=== PATIENT | female | born 1985 | race Caucasian/White ===

== ENCOUNTER 2020-09-10 11:51 | Observation (INO) | END 2020-09-10 14:30 | disposition home or self-care (01) | LOC: 1NENULAB | PROVIDERS: ADMIT Obstetrics & Gynecology; ATTEND Obstetrics & Gynecology ==

== ENCOUNTER 2020-09-19 03:48 | Inpatient (IN) ==
[2020-09-19] MEDS ORDERED: Metoclopramide 10 MG/2 ML VIAL IVP PRN (04:57)
[2020-09-19] MEDS ORDERED: Naloxone 0.4 MG/ML INJ IVP PRN (04:57)
[2020-09-19] MEDS ORDERED: *HR* Nalbuphine 10 MG/ML AMPUL IV PRN (04:57)
[2020-09-19] MEDS ORDERED: Famotidine 20 MG/2 ML VIAL IVP PRN (04:57)
[2020-09-19] MEDS ORDERED: Lidocaine 1% 20 ML MDV INFILT PRN (04:57)
[2020-09-19] MEDS ORDERED: Ringers Solution, Lactated 1,000 ML IVC SCH (05:00)
[2020-09-19] MEDS: miSOPROStoL 25 MCG TABLET PO PRN ×2 (05:22→09:22)
[2020-09-19 05:56] LABS: Basophils # 0.1 K/mcL (0.0-0.2); Basophils % 0.6 %; Eosinophils # 0.1 K/mcL (0.0-0.6); Eosinophils % 1.1 %; Hemoglobin 11.1 g/dL (11.5-15.4); Immature Granulocytes % 0.5 % (0-4); Immature Platelets 1.9 % (1.1-6.1); Lymphocytes % 24.5 %; Mean Corpuscular HGB Conc 33.6 g/dL (31.6-35.5); Mean Corpuscular Hemoglobin 33.7 pg (28.0-33.3); Mean Corpuscular Volume 100.3 fL (83.0-100.0); Monocytes # 0.9 K/mcL (0.0-1.3); Monocytes % 9.7 %; Neutrophils # 5.6 K/mcL (1.6-8.9); Platelet Count 239 K/mcL (140-400); Red Blood Count 3.29 M/mcL (3.82-4.97); Red Cell Distribution Width 12.3 % (11.5-14.5); Segmented Neutrophils % 63.6 %; White Blood Count 8.8 K/mcL (4.3-11.1)
[2020-09-19 06:13] LABS: Amphetamine Screen,Urine Negative ng/mL (Cutoff=1000); Barbiturate Screen,Urine Negative ng/mL (Cutoff=200); Benzodiazepines Screen,Urine Negative ng/mL (Cutoff=200); Cannabinoid Screen,Urine Positive ng/mL (Cutoff = 50); Cocaine Screen,Urine Negative ng/mL (Cutoff= 300); Opiate Screen,Urine Negative ng/mL (Cutoff=300); Phencyclidine Screen,Urine Negative ng/mL (Cutoff=25)
[2020-09-19 06:18] LABS: Lymphocytes # 2.2 K/mcL (0.6-4.6)
[2020-09-19 06:19] LABS: Platelet Estimate Normal (Normal)
[2020-09-19] MEDS ORDERED: EPHEDrine 50 MG/ML VIAL IVP PRN (12:16)
[2020-09-19] MEDS ORDERED: Epidural Premix (fent/bupiv) 110 ML EP SCH (12:30)
[2020-09-19] MEDS ORDERED: Oxytocin 20 units/ LR 1000 mL 20 UNIT/1,000 ML BAG IVC SCH ×2 (12:45→22:45)
[2020-09-19] MEDS ORDERED: Measles/Mumps/Rubella Vacc 0.5 ML VIAL SQ PRN (22:33)
[2020-09-19] MEDS ORDERED: Rho Immune Globulin 1,500 UNIT SYRINGE IM PRN (22:33)
[2020-09-19] MEDS ORDERED: Acetaminophen 325 MG TABLET PO PRN (22:33)
[2020-09-19] MEDS ORDERED: Ibuprofen 600 MG TABLET PO PRN (22:33)
[2020-09-20 05:03] LABS: Basophils % 0.2 %; Eosinophils % 0.1 %; Hematocrit 30.7 % (35.3-44.9); Hemoglobin 10.6 g/dL (11.5-15.4); Immature Granulocytes % 0.5 % (0-4); Lymphocytes # 1.5 K/mcL (0.6-4.6); Lymphocytes % 8.9 %; Mean Corpuscular HGB Conc 34.5 g/dL (31.6-35.5); Mean Corpuscular Hemoglobin 34.2 pg (28.0-33.3); Mean Platelet Volume 9.3 fL (9.4-12.4); Monocytes % 5.1 %; Neutrophils # 14.1 K/mcL (1.6-8.9); Platelet Count 208 K/mcL (140-400); Red Cell Distribution Width 12.3 % (11.5-14.5); Segmented Neutrophils % 85.2 %
[2020-09-20 05:09] LABS: Monocytes # 0.9 K/mcL (0.0-1.3); White Blood Count 16.6 K/mcL (4.3-11.1)
[2020-09-20] MEDS: Prenatal Vit/FA 1 EACH TABLET PO SCH (07:56)
[2020-09-20 21:21] VITALS: BP 129/67
[2020-09-21] MEDS: Prenatal Vit/FA 1 EACH TABLET PO SCH (08:01)
== END 2020-09-21 11:52 | disposition home or self-care (01) | DRG 560 ==
LOC: 1NENULAB 03:48 → 1NENUOBS 09-20 01:40
PROVIDERS: ADMIT Student in an Organized Health Care Education/Training Program; ATTEND Student in an Organized Health Care Education/Training Program